=== PATIENT | female | born 1930 | race Hispanic/Latino ===

== ENCOUNTER 2017-05-13 19:12 | Inpatient (IN) | payer MEDICARE, OTHER ==
[2017-05-13 19:19] VITALS: BMI 29.0
[2017-05-13 19:42] LABS: BASO # 0.05 K/mm3 (0.0-2.0); BASO % 0.4 % (0.0-3.0); EOS # 0.2 (0.0-0.7); EOS % 1.5 % (1.5-5.0); GRAN # 6.85 (1.4-6.5); GRAN % 61.4 % (50.0-68.0); HEMOGLOBIN 14.1 g/dL (12.0-16.0); LYMPH # 2.4 (1.2-3.4); LYMPH % 21.1 % (22.0-35.0); MEAN CORPUSCULAR HEMOGLOBIN 30.1 pg (25.0-35.0); MEAN CORPUSCULAR HGB CONC 33.1 g/dl (31.0-37.0); MEAN PLATELET VOLUME 9.1 fl (7.0-11.0); MONO # 1.7 (0.1-0.6); MONO % 15.6 % (1.0-6.0); RBC 4.68 10^6/uL (3.5-6.1); RED CELL DISTRIBUTION WIDTH 13.6 % (11.5-14.5); WHITE BLOOD COUNT 11.2 10^3/ul (4.5-11.0)
--- NOTE | 2017-05-13 19:58 | ED PDOC ---
Arrival/HPI - General Chief Complaint: Lower Extremity Problem/Injury Time Seen by Provider: 05/13/17 19:22 - History of Present Illness Narrative History of Present Illness (Text): 05/13/17 19:54 Patient is an 86 y/o F with hx of dm, htn, copd, hyperlipidemia, presenting complaining of b/l lower extremity edema. Also complaining of worsening shortness of breath and dyspnea on exertion. Reports productive cough. Denies fever. Past Medical History - Provider Review Nursing Documentation Reviewed: Yes - Infectious Disease Hx of Infectious Diseases: None - Tetanus Immunization Tetanus Immunization: Unknown - Cardiac Hx Cardiac Disorders: Yes Hx Congestive Heart Failure: Yes Hx Hypertension: Yes Hx Pacemaker: No Other/Comment: Stent placement - Pulmonary Hx Chronic Obstructive Pulmonary Disease (COPD): Yes - Neurological Hx Neurological Disorder: No - HEENT Hx HEENT Disorder: Yes Hx Cataracts: Yes Hx Deafness: Yes (left ear) - Renal Hx Renal Disorder: Yes Hx Neurogenic Bladder: Yes - Endocrine/Metabolic Hx Endocrine Disorders: Yes Hx Diabetes Mellitus Type 2: Yes - Hematological/Oncological Hx Blood Transfusions: No Hx Blood Transfusion Reaction: No - Integumentary Hx Dermatological Disorder: No - Musculoskeletal/Rheumatological Hx Musculoskeletal Disorders: Yes - Gastrointestinal Hx Gastrointestinal Disorders: Yes Hx Gastroesophageal Reflux: Yes - Genitourinary/Gynecological Hx Genitourinary Disorders: No - Psychiatric Hx Psychophysiologic Disorder: No Hx Emotional Abuse: No Hx Physical Abuse: No Hx Substance Use: No - Past Surgical History Past Surgical History: Unable to Obtain - Surgical History Hx Coronary Stent: Yes Hx Eye Surgery: Yes - Anesthesia Hx Anesthesia Reactions: Yes (NAUSEA) - Suicidal Assessment Feels Threatened In Home Enviroment: No Family/Social History - Physician Review Nursing Documentation Reviewed: Yes Family/Social History: No Known Family HX Smoking Status: Former Smoker Hx Alcohol Use: No Hx Substance Use: No Hx Substance Use Treatment: No Allergies/Home Meds Allergies/Adverse Reactions: Allergies oxycodone Allergy (Verified 06/06/16 12:31) NAUSEA Sulfa (Sulfonamide Antibiotics) Allergy (Verified 06/06/16 12:31) NAUSEA MOLD Allergy (Intermediate, Uncoded 06/06/16 12:31) SHORTNESS OF BREATH Home Medications: Home Meds Medication Instructions Recorded Confirmed Albuterol Sulfate [Proair Hfa] 0.09 mg IH Q4H PRN 09/21/12 05/13/17 Fluticasone/Salmeterol [Advair 1 puff IH Q12H 09/21/12 05/13/17 250-50 Diskus] Tiotropium [Spiriva] 18 mcg IH DAILY 09/21/12 05/13/17 Atorvastatin Calcium [Lipitor] 10 mg PO QPM 03/16/15 05/13/17 Clopidogrel [Plavix] 75 mg PO DAILY 03/16/15 05/13/17 Aspirin [Aspirin Chewable] 81 mg PO DAILY 06/06/16 05/13/17 Furosemide [Lasix] 20 mg PO BID 06/06/16 05/13/17 Glipizide [Glipizide Xl] 5 mg PO BID 06/06/16 05/13/17 Lisinopril [Zestril] 20 mg PO BID 06/06/16 05/13/17 diltiaZEM [Cardizem] 360 mg PO DAILY 06/06/16 05/13/17 Cholecalciferol (Vitamin D3) 2,000 unit PO DAILY 02/09/17 05/13/17 [Vitamin D3] Metoprolol Tartrate [Lopressor] 25 mg PO BID 02/09/17 05/13/17 Review of Systems - Physician Review All systems were reviewed & negative as marked: Yes - Review of Systems Constitutional: absent: Weight Change, Fevers Respiratory: SOB, Cough, Sputum. absent: Wheezing Cardiovascular: Edema. absent: Chest Pain, Palpitations, Calf Pain, HICKEY Gastrointestinal: absent: Abdominal Pain, Constipation, Diarrhea, Nausea, Vomiting Genitourinary Female: absent: Dysuria Physical Exam Vital Signs Reviewed: Yes Vital Signs Temp Pulse Resp BP Pulse Ox 05/13/17 20:49 163/72 H 05/13/17 19:12 97.3 F L 64 19 194/94 H 95 Temperature: Afebrile Blood Pressure: Hypertensive Pulse: Regular Respiratory Rate: Normal Appearance: Positive for: Well-Appearing, Non-Toxic, Comfortable Pain Distress: None Mental Status: Positive for: Alert and Oriented X 3 - Systems Exam Head: Present: Atraumatic, Normocephalic Pupils: Present: PERRL Extroacular Muscles: Present: EOMI Conjunctiva: Present: Normal Mouth: Present: Moist Mucous Membranes Neck: Present: Normal Range of Motion Respiratory/Chest: Present: Rales, Other (decreased air entry) Cardiovascular: Present: Irregular Rhythm Abdomen: No: Tenderness, Distention Upper Extremity: Present: Normal Inspection Lower Extremity: Present: Edema (2+ pitting edema) Neurological: Present: GCS=15, CN II-XII Intact Psychiatric: Present: Alert, Oriented x 3 Medical Decision Making ED Course and Treatment: Chart review shows echo in 2014 showing EF:70%. 02/2017 normal stress test. 05/13/17 19:57 Ekg shows afib at 55bpm with appears new. 05/13/17 20:26 Cxray negative for overload. BNP mildly elevated. Trop negative. Will transfer to tele for new onset afib and lower extremity edema under Dr. Aburto 05/13/17 21:00 - Lab Interpretations Lab Results: 05/13/17 19:29 05/13/17 19:29 Lab Results 05/13/17 19:29: Influenza Typ A,B (EIA) Negative for flu a/b 05/13/17 19:29: Sodium 138, Potassium 4.4, Chloride 100, Carbon Dioxide 26, Anion Gap 17, BUN 20, Creatinine 0.7, Est GFR ( Amer) > 60, Est GFR (Non- Af Amer) > 60, Random Glucose 174 H, Calcium 10.9 H, Total Bilirubin 0.9, AST 30 , ALT 37, Alkaline Phosphatase 137 H, Troponin I 0.02 D, NT-Pro-B Natriuret Pep 984 H, Total Protein 7.7, Albumin 4.3, Globulin 3.4, Albumin/Globulin Ratio 1.3 05/13/17 19:29: WBC 11.2 H, RBC 4.68, Hgb 14.1, Hct 42.6, MCV 91.0, MCH 30.1, MCHC 33.1, RDW 13.6, Plt Count 292, MPV 9.1, Gran % 61.4, Lymph % (Auto) 21.1 L , [place] % (Auto) 15.6 H, Eos % (Auto) 1.5, Baso % (Auto) 0.4, Gran # 6.85 H, Lymph # 2.4, [place] # 1.7 H, Eos # 0.2, Baso # 0.05 - RAD Interpretation Radiology Orders: 05/13/17 19:22 CHEST PORTABLE [RAD] Stat - Medication Orders Current Medication Orders: Discontinued Medications Aspirin (Aspirin Chewable) 324 mg PO STAT STA Stop: 05/13/17 20:26 Last Admin: 05/13/17 20:49 Dose: 324 mg Furosemide (Lasix) 20 mg IVP STAT STA Stop: 05/13/17 20:26 Last Admin: 05/13/17 20:49 Dose: 20 mg MAR Blood Pressure Document 05/13/17 20:49 CNR (Rec: 05/13/17 20:54 CNR [id number]) Blood Pressure Blood Pressure (100/60-150/90) 163/72 IVP Administration Document 05/13/17 20:49 CNR (Rec: 05/13/17 20:54 CNR [id number]) Charges for Administration # of IVP Administrations 1 Disposition/Present on Arrival - Present on Arrival Any Indicators Present on Arrival: No History of DVT/PE: No History of Uncontrolled Diabetes: No Urinary Catheter: No History of Decub. Ulcer: No History Surgical Site Infection Following: None - Disposition Have Diagnosis and Disposition been Completed?: Yes Diagnosis: Lower extremity edema, New onset atrial fibrillation Disposition: HOSPITALIZED Disposition Time: 20:27 Patient Plan: Admission Patient Problems: Current Active Problems Problem Status Onset Lower extremity edema Acute New onset atrial fibrillation Acute Condition: FAIR Referrals: Louisa Aburto MD [Primary Care Provider] - Follow up with primary Forms: [facility] (Romansh)
[2017-05-13 20:13] LABS: ALB/GLOB RATIO 1.3 (1.1-1.8); ALBUMIN 4.3 g/dL (3.0-4.8); ALT/SGPT 37 U/L (7-56); AST/SGOT 30 U/L (14-36); BLOOD UREA NITROGEN 20 mg/dL (7-21); CALCIUM 10.9 mg/dL (8.4-10.5); GFR AFRICAN-AMERICAN > 60; GFR NON-AFRICAN AMERICAN > 60
[2017-05-13 20:22] LABS: B-TYPE NATRIURETIC PEPTIDE 984 pg/mL (0-450); TROPONIN I 0.02 ng/mL
[2017-05-13] MEDS ORDERED: Insulin Lispro (humaLOG) MEDIUM Coverage SC SCH (22:00)
[2017-05-13] MEDS: GlipiZIDE 5 mg SR Tab PO SCH (22:55)
[2017-05-13] MEDS: Insulin Lispro (humaLOG) MEDIUM Coverage SC SCH (22:56)
--- NOTE | 2017-05-14 01:24 | CP.PCM.PN ---
Subjective - Date & Time of Evaluation Date of Evaluation: 05/14/17 Time of Evaluation: 01:21 - Subjective Subjective: S:Nurse calls and tells that troponin has gone up from 0.02 to 0.03 and if she can repeat troponin. Patient is asymptomatic. Medical record was reviewed. O: Last Vital Signs 3 Temp 97.3 F L 05/13/17 19:12 Pulse 55 L 05/13/17 21:49 Resp 16 05/13/17 21:49 BP 154/61 H 05/13/17 21:49 Pulse Ox 95 05/13/17 21:49 Awake, alert. LUNGS: Normal breathing pattern. A: Trending up troponin. P: May repeat troponin level in AM. Objective - Vital Signs/Intake and Output Vital Signs (last 24 hours): Temp Pulse Resp BP Pulse Ox 97.3 F L 55 L 16 154/61 H 95 05/13/17 19:12 05/13/17 21:49 05/13/17 21:49 05/13/17 21:49 05/13/17 21:49 - Medications Medications: Current Medications Aspirin (Aspirin Chewable) 81 mg PO DAILY [facility] Atorvastatin Calcium (Lipitor) 10 mg PO QPM [facility] Clopidogrel Bisulfate (Plavix) 75 mg PO DAILY [facility] Diltiazem HCl (Cardizem Cd) 360 mg PO DAILY [facility] Furosemide (Lasix) 40 mg IVP DAILY [facility] Glipizide (Glucotrol Xl) 5 mg PO BID [facility] Last Admin: 05/13/17 22:55 Dose: Not Given Insulin Human Lispro (Humalog Med) 0 units SC [facility] PRN Reason: Protocol Last Admin: 05/13/17 22:56 Dose: Not Given Insulin Human Lispro (Humalog Med) 0 units SC [facility] PRN Reason: Protocol Last Admin: 05/13/17 22:56 Dose: Not Given Lisinopril (Zestril) 20 mg PO BID [facility] Last Admin: 05/13/17 21:45 Dose: 20 mg Metoprolol Tartrate (Lopressor) 25 mg PO BID [facility] Tiotropium [place] (Spiriva) 18 mcg IH DAILY [facility]
--- NOTE | 2017-05-14 04:50 | HP ---
HISTORY OF PRESENT ILLNESS: The patient is an 86-year-old known to me from my office practice. I got a call earlier that her legs are swollen. I advised her to go to emergency room to rule out DVT versus congestive heart failure. So, the patient came to the Emergency Room for further evaluation. The patient does complain of cough and congestion. She does complain of shortness of breath on walking. No history of fever, no chills. No nausea or vomiting. No diarrhea. No hemoptysis. No hematemesis. PAST MEDICAL HISTORY: 1. She has significant past medical history of non-insulin dependent diabetes. 2. Hypertension. 3. COPD. 4. Coronary artery disease, status post angioplasty. 5. History of degenerative disc disease, status post multiple epidurals, status post cardiac cath in 03/2015. At that point, she had angioplasty done for ramus intermedius that was 90% stenosis, ejection fraction 60% to 65%. ALLERGIES: She is allergic to: 1. OXYCODONE. 2. SULFA. 3. MOLDS. MEDICATIONS AT HOME: She is on Spiriva 18 mcg daily, metoprolol 25 mg b.i.d., lisinopril 20 mg twice a day, Advair 250/50 one puff twice a day, aspirin 81 daily, albuterol, diltiazem 360 daily, glipizide 5 mg twice a day, Lasix 20 mg twice a day, Plavix 75 daily, Lipitor 10 mg daily. SOCIAL HISTORY: She used to be a heavy smoker in the past, but quit few years ago. PHYSICAL EXAMINATION: GENERAL: She is awake, alert, and oriented. Mild shortness of breath. VITAL SIGNS: She is afebrile. Pulse 64, respirations 19, blood pressure 163/72. LUNGS: Bilateral few respiratory rhonchi. Soft crackles at bases. HEART: S1 and S2 audible. ABDOMEN: Soft and nontender. No rebound. No guarding. NEUROLOGIC: The patient is awake, alert, oriented, able to communicate. EXTREMITIES: Bilateral legs, +2 edema. LABORATORY EXAMINATION: WBC is 11.2, hemoglobin 14, hematocrit 42.6, platelet of 292,000. Chemistry: Sodium of 138, potassium 4.4, chloride 100, CO2 of 26, BUN 20, creatinine 0.7, blood sugar of 174. Calcium 10.9, alkaline phosphatase 137. BNP 984. Flu test is negative. ASSESSMENT: 1. Chronic obstructive pulmonary disease exacerbation. 2. Congestive heart failure. 3. Coronary artery disease. 4. Non-insulin dependent diabetes. 5. Hypertension. 6. Hyperlipidemia. PLAN: We will start the patient on her usual medication. We will monitor blood sugars. Start IV Lasix. The patient is in AFib, but rate controlled. I will start her on Eliquis and Dr. Damian to evaluate the patient in the a.m. We will follow up electrolyte in a.m. Louisa Aburto MD
--- NOTE | 2017-05-14 05:27 | CP.PCM.PN ---
Subjective - Date & Time of Evaluation Date of Evaluation: 05/14/17 Time of Evaluation: 05:26 - Subjective Subjective: As per nurse patient has nausea. No chest pain, sob. VSS. Rx, Protonix 40 mg IV x 1 . troponin pending. Objective - Vital Signs/Intake and Output Vital Signs (last 24 hours): Temp Pulse Resp BP Pulse Ox 99.2 F 56 L 20 158/58 H 95 05/13/17 22:32 05/14/17 05:18 05/13/17 22:32 05/13/17 22:32 05/13/17 21:49 - Medications Medications: Current Medications Aspirin (Aspirin Chewable) 81 mg PO DAILY [facility] Atorvastatin Calcium (Lipitor) 10 mg PO QPM [facility] Clopidogrel Bisulfate (Plavix) 75 mg PO DAILY [facility] Diltiazem HCl (Cardizem Cd) 360 mg PO DAILY [facility] Furosemide (Lasix) 40 mg IVP DAILY [facility] Glipizide (Glucotrol Xl) 5 mg PO BID [facility] Last Admin: 05/13/17 22:55 Dose: Not Given Insulin Human Lispro (Humalog Med) 0 units SC [facility] PRN Reason: Protocol Last Admin: 05/13/17 22:56 Dose: Not Given Insulin Human Lispro (Humalog Med) 0 units SC [facility] PRN Reason: Protocol Last Admin: 05/13/17 22:56 Dose: Not Given Lisinopril (Zestril) 20 mg PO BID [facility] Last Admin: 05/13/17 21:45 Dose: 20 mg Metoprolol Tartrate (Lopressor) 25 mg PO BID [facility] Tiotropium [place] (Spiriva) 18 mcg IH DAILY [facility]
[2017-05-14] MEDS ORDERED: Pantoprazole 40 mg EC Tab PO STA (05:39)
[2017-05-14 05:48] LABS: ALB/GLOB RATIO 1.2 (1.1-1.8); ALBUMIN 3.8 g/dL (3.0-4.8); CALCIUM 10.3 mg/dL (8.4-10.5); GFR AFRICAN-AMERICAN > 60; GFR NON-AFRICAN AMERICAN > 60
[2017-05-14 05:56] LABS: TROPONIN I 0.02 ng/mL
[2017-05-14 06:00] LABS: FREE T4 1.23 ng/dL (0.78-2.19)
[2017-05-14 06:10] LABS: ALT/SGPT 37 U/L (7-56); AST/SGOT 34 U/L (14-36); BLOOD UREA NITROGEN 22 mg/dL (7-21); MAGNESIUM 1.7 mg/dL (1.7-2.2)
[2017-05-14] MEDS: Insulin Lispro (humaLOG) MEDIUM Coverage SC SCH ×4 (07:47→23:44)
--- NOTE | 2017-05-14 08:11 | RAD ---
HISTORY: lower extremity edema COMPARISON: 06/06/2016 FINDINGS: LUNGS: There is minimal parenchymal scarring in the right upper lobe and left lower lobe. There are no acute findings PLEURA: No significant pleural effusion identified, no pneumothorax apparent. CARDIOVASCULAR: Normal. OSSEOUS STRUCTURES: No significant abnormalities. VISUALIZED UPPER ABDOMEN: Normal. OTHER FINDINGS: None. IMPRESSION: No acute changes
[2017-05-14] MEDS: diltiaZEM 180 mg/24 Hours CD Cap PO SCH (09:16)
[2017-05-14] MEDS: GlipiZIDE 5 mg SR Tab PO SCH ×2 (09:17→17:28)
[2017-05-14] MEDS: Tiotropium 18 mcg Cap For Inhalation IH SCH (10:20)
[2017-05-14] MEDS: Levalbuterol 1.25 MG/3 ML Inhal Soln UD IH SCH ×3 (11:15→22:15)
--- NOTE | 2017-05-14 12:20 | CARD ---
APPROVED REPORT EKG Measurement Heart [id number] HI [id number] <Conclusion> Sinus rhythm with 1st degree AV block Nonspecific ST and T wave abnormality Abnormal ECG
[2017-05-14] MEDS ORDERED: Enoxaparin 40 mg Syringe SC ONE (17:25)
--- NOTE | 2017-05-14 19:00 | PN ---
DATE: SUBJECTIVE: The patient is an 86-year-old, who came in with bilateral leg swelling with shortness of breath, cough and congestion. Was found to be in AFib. Repeat EKG this morning shows sinus rhythm. Currently, feeling well. No nausea, vomiting or diarrhea. PHYSICAL EXAMINATION: VITAL SIGNS: The patient is afebrile. Pulse 69, respirations 21, blood pressure 144/57. LUNGS: Bilateral fair airflow. Few occasional expiratory rhonchi. Lower lung region has soft crackle. HEART: S1 and S2, audible. Regular rate and rhythm. ABDOMEN: Soft, nontender. No rebound. No guarding. NEUROLOGIC: She is awake, alert, oriented, able to communicate. EXTREMITIES: Bilateral leg no edema. LABORATORY DATA: Her chemistry: Sodium 139, potassium 4.0, chloride 100, CO2 of 27, BUN 22, creatinine 0.6, blood sugar of 186. . ASSESSMENT: 1. New onset atrial fibrillation. Currently in sinus rhythm. 2. Congestive heart failure acute on chronic systolic. 3. Coronary artery disease. 4. Hypertension. 5. Non-insulin dependent diabetes. 6. Hyperlipidemia. 7. Chronic obstructive pulmonary disease. PLAN: We will start the patient on nebulizer treatment. Start her on diuresis. Continue her on metoprolol. Monitor her blood sugar. We will discuss with Dr. Damian if we should put the patient on Eliquis because of intermittent paroxysmal AFib since the patient is spontaneously converted into sinus rhythm. Louisa Aburto MD
[2017-05-15 02:38] VITALS: RESP 20; O2SAT 99
--- NOTE | 2017-05-15 05:51 | CON ---
DATE: 05/14/2017 REASON FOR CONSULTATION AND FOLLOWUP: Cardiac evaluation, paroxysmal atrial fibrillation, congestive heart failure, history of coronary artery disease. BRIEF CLINICAL HISTORY: This is an 86-year-old female with past medical history of coronary artery disease, COPD, hypertension, obesity, questionable history of paroxysmal atrial fibrillation, admitted with complaint of increased swelling of legs and shortness of breath. EKG shows normal sinus with APCs. The patient admitted for atrial fibrillation as well, but is normal sinus. PAST MEDICAL HISTORY: Significant for diabetes, hypertension, hyperlipidemia, coronary artery disease, peripheral artery disease, and mitral stenosis. PREVIOUS CARDIAC WORKUP: The patient's bilateral carotids on 11/21/2014, that showed 40% to 55% bilateral stenosis. The patient's stress test on 01/21, normal ejection fraction, echocardiography on 11/21/2014 that showed ejection fraction of 55% ,aortic regurgitation, moderate mitral regurgitation, mild tricuspid regurgitation, pulmonary insufficiency. OMAR was done, bilateral SFA and popliteal disease trifurcation. OMAR on the right 0.59, 0.74. 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 Preserved left ventricular function, ejection fraction of 65%. Right heart catheterization at that time revealed RA 6 to 7, RV 42/11, PA 37/18, mean PA 18, 14, cardiac output 4.8 L per minute, cardiac index 2.56 L, PVR 1.7 Franks unit, occluded left internal carotid artery, occluded both SFA. Successful PTCA of ELBA and ramus intermedius done. No significant aortic stenosis noted. Mild gradient noted on pullback where the patient had peripheral vascular study, showed bilateral renal artery patent. No obstructive stenosis noted. Bilateral common iliac divides into femoral artery. 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 Medical treatment recommended. RECOMMENDATION: If claudication developed, consider PCI. Bilateral carotid angiogram done that shows right common carotid artery exiting from the brachiocephalic trunk. No flow obstructive stenosis noted. Left internal carotid artery from arch into the internal and external after taking off internal carotid artery 1-cm totally occluded. Medical treatment recommended. Left internal carotid artery occluded, right common artery normal. The patient has recent stress test done on 02/09/2017, that shows essentially normal myocardial perfusion study, fixed defect most likely secondary to breast attenuation, no ischemia. REVIEW OF SYSTEMS: As per HPI. CURRENT MEDICATIONS: The patient is taking at home Cardizem 12.8, metoprolol, lisinopril, glipizide, clopidogrel, aspirin and Plavix. ALLERGIES: TO OXYCODONE, SULFA AND MOLD. PHYSICAL EXAMINATION: VITAL SIGNS: As follows: Temperature afebrile, heart rate 69 and blood pressure 144/57. HEENT: PERRLA. Extraocular muscles intact. NECK: Supple. No carotid bruits or thyromegaly. CHEST: Clear to auscultation. HEART: S1 and S2, regular. ABDOMEN: Soft. EXTREMITIES: Clubbing and cyanosis negative. LABORATORY DATA: Blood workup as follows: WBC 11.8, hemoglobin 14.2, hematocrit 42.6 and platelet count 292. Chemistries show sodium 139, potassium 4, chloride 100, carbon dioxide 26, anion gap 15, BUN 20, creatinine 0.6. Troponin 0.03. BNP 984. IMPRESSION: Diabetes, hypertension, hyperlipidemia, morbid obesity, coronary artery disease, peripheral arterial disease, mitral stenosis, moderate mild aortic stenosis. RECOMMENDATIONS: We will resume aspirin and Plavix. Continue Lasix, continue Cardizem. We will repeat echo, lipid profile, TSH, hemoglobin A1c. We will follow with you. Once stable, probably we will discharge the patient tomorrow. Continue beta bert. Continue atorvastatin. Continue lisinopril. Thank you Dr. Aburto for providing us this opportunity in taking care of the patient, Garth. Viviana Damian MD
[2017-05-15 06:05] LABS: BASO # 0.06 K/mm3 (0.0-2.0); BASO % 0.5 % (0.0-3.0); EOS # 0.2 (0.0-0.7); EOS % 1.5 % (1.5-5.0); GRAN # 6.93 (1.4-6.5); GRAN % 61.8 % (50.0-68.0); HEMOGLOBIN 12.7 g/dL (12.0-16.0); LYMPH # 2.9 (1.2-3.4); MEAN CELL VOLUME 91.8 fl (80.0-105.0); MEAN CORPUSCULAR HEMOGLOBIN 29.7 pg (25.0-35.0); MEAN CORPUSCULAR HGB CONC 32.3 g/dl (31.0-37.0); MEAN PLATELET VOLUME 9.3 fl (7.0-11.0); MONO # 1.1 (0.1-0.6); MONO % 10.2 % (1.0-6.0); RBC 4.28 10^6/uL (3.5-6.1); RED CELL DISTRIBUTION WIDTH 13.8 % (11.5-14.5); WHITE BLOOD COUNT 11.2 10^3/ul (4.5-11.0)
[2017-05-15 06:33] LABS: ALB/GLOB RATIO 1.3 (1.1-1.8); ALBUMIN 3.9 g/dL (3.0-4.8); ALT/SGPT 34 U/L (7-56); AST/SGOT 31 U/L (14-36); BLOOD UREA NITROGEN 38 mg/dL (7-21); CALCIUM 10.6 mg/dL (8.4-10.5); GFR AFRICAN-AMERICAN > 60; GFR NON-AFRICAN AMERICAN 60; HDL CHOLESTEROL 38 mg/dL (29-60); LDL CHOLESTEROL 79 mg/dL (0-129); MAGNESIUM 1.6 mg/dL (1.7-2.2)
[2017-05-15] MEDS: Levalbuterol 1.25 MG/3 ML Inhal Soln UD IH SCH ×2 (07:52→14:19)
[2017-05-15] MEDS: Insulin Lispro (humaLOG) MEDIUM Coverage SC SCH ×2 (08:57→12:29)
--- NOTE | 2017-05-15 09:56 | CARD ---
APPROVED REPORT EKG Measurement Heart [id number] ND [id number] <Conclusion> Sinus rhythm with 1st degree AV block ST & T wave abnormality, consider lateral ischemia Abnormal ECG
[2017-05-15] MEDS ORDERED: Enoxaparin 40 mg Syringe SC SCH (10:00)
[2017-05-15] MEDS ORDERED: Magnesium Oxide 400 mg Tab UD PO SCH (10:00)
[2017-05-15] MEDS: Tiotropium 18 mcg Cap For Inhalation IH SCH (10:02)
[2017-05-15] MEDS: GlipiZIDE 5 mg SR Tab PO SCH (10:03)
[2017-05-15] MEDS: diltiaZEM 180 mg/24 Hours CD Cap PO SCH (10:03)
--- NOTE | 2017-05-15 13:44 | PN ---
DATE: 05/15/2017 REASON FOR CONSULTATION AND FOLLOWUP: Cardiac evaluation, paroxysmal atrial fibrillation, congestive heart failure, coronary artery disease. SUBJECTIVE: The patient denies any chest pain, shortness of breath or any palpitations. OBJECTIVE: GENERAL: Not in apparent distress. Lying flat on the bed. VITAL SIGNS: Temperature afebrile, heart rate 66, blood pressure 130/52. HEENT: PERRLA intact. NECK: Supple. No carotid bruits or thyromegaly. CHEST: Clear to auscultation. HEART: S1 and S2, regular. ABDOMEN: Soft. EXTREMITIES: Clubbing and cyanosis negative. LABORATORY DATA: Blood workup as follows: WBC 11.8, hemoglobin 12, hematocrit 39.3, and platelet count 302. Chemistry shows sodium 130, potassium 4, chloride 100, carbon dioxide 29, anion gap of 13, BUN 30, and creatinine 0.9. Magnesium 1.6. BNP yesterday was 984. Troponin 0.02. IMPRESSION: Hypomagnesemia, history of coronary artery disease status post percutaneous transluminal coronary angioplasty with drug-eluting stent, ramus intermedius, diabetes, hypertension, hyperlipidemia, mild obesity, coronary artery disease, peripheral artery disease, mitral stenosis, moderate aortic stenosis. Recent stress test 02/10/2016, essentially normal myocardial perfusion study, no reversible ischemia. Right heart catheterization in 2014 was essentially upper limit normal. RECOMMENDATIONS: We will follow up echo. The patient's admitting EKG shows normal sinus with APCs, mildly elevated BNP. We will treat medically. Repeat EKG though showed some baseline abnormality but it is normal sinus. We will supplement electrolytes. Discontinue telemetry. Continue DVT prophylaxis. Continue Lasix. Possible discharge home today. Thank you Dr. Collier for providing us the opportunity in taking care of the patient, Viviana Damian MD
[2017-05-15 18:10] VITALS: BP 159/63; PULSE 57; TEMP 98.2
--- NOTE | 2017-05-15 18:14 | CARD ---
APPROVED REPORT EXAM: Two-dimensional and M-mode echocardiogram with Doppler and color Doppler. INDICATION LV Function:SystolicDiastolic Chest Pain 2D DIMENSIONS Left Atrium (2D)4.2 (1.6-4.0cm)IVSd1.1 (0.7-1.1cm) LVDd4.4 (3.9-5.9cm)PWd1.3 (0.7-1.1cm) LVDs2.9 (2.5-4.0cm)FS (%) 32.6 % LVEF (%)61.2 (>50%) M-Mode DIMENSIONS Aortic Root2.30 (2.2-3.7cm)Aortic Cusp Exc.0.60 (1.5-2.0cm) Aortic Valve AoV Peak Emsbryun698.0cm/sAoV VTI46.5cmAO Peak GR.20mmHg LVOT Peak Pljygbyl021.0cm/sLVOT VTI25.30cmAO Mean GR.10mmHg Mitral Valve MV E Tgamejtc966.0cm/sMV E Peak Gr.9mmHgMV A Yyfkbekl143.0cm/s MV E Mean Gr.4mmHgMV YKG329ekQ/A ratio0.7 MVA (PHT)1.43cm2 TDI E/Lateral E'0.0E/Medial E'0.0 Tricuspid Valve TR Peak Ljvlfehh424xb/sRAP UMMLUQYL06gfOaIL Peak Gr.25mmHg ATWL51zjTc LEFT VENTRICLE The left ventricle is normal size. There is mild concentric left ventricular hypertrophy. The left ventricular function is normal.EF-65% There is normal LV segmental wall motion. Transmitral Doppler flow pattern is Grade III-reversible restrictive diastolic dysfunction. No left ventricle thrombus noted on this study. There is no ventricular septal defect visualized. There is no left ventricular aneurysm. There is no mass noted in the left ventricle. RIGHT VENTRICLE The right ventricle is normal size. There is normal right ventricular wall thickness. The right ventricular systolic function is normal. ATRIA The left atrium is mildly dilated. The right atrium size is normal. The interatrial septum is intact with no evidence for an atrial septal defect. AORTIC VALVE The aortic valve is calcified and displays decreased opening. No aortic regurgitation is present. There is mild valvular aortic stenosis. There is no aortic valvular vegetation. MITRAL VALVE The mitral valve is calcified and displays decreased opening. Mitral regurgitation is trace. There is mild to moderate mitral valve stenosis. There is no evidence of mitral valve prolapse. TRICUSPID VALVE The tricuspid valve leaflets are thickened , but open well. There is mild tricuspid regurgitation.RVSP-35 mmof Hg. There is no tricuspid valve stenosis. There is no tricuspid valve prolapse or vegetation. PULMONIC VALVE The pulmonary valve is normal in structure. There is trace pulmonic valvular regurgitation. There is no pulmonic valvular stenosis. GREAT VESSELS The aortic root is normal in size. The ascending aorta is normal in size. The pulmonary artery is normal. The IVC is normal in size and collapses >50% with inspiration. PERICARDIAL EFFUSION There is no pleural effusion. There is no pericardial effusion. <Conclusion> The left ventricle is normal size. There is mild concentric left ventricular hypertrophy. The left ventricular function is normal.EF-65% There is mild valvular aortic stenosis. Mitral regurgitation is trace. There is mild tricuspid regurgitation.RVSP-35 mmof Hg. There is no pericardial effusion. There is mild to moderate mitral valve stenosis. The mitral valve is calcified and displays decreased opening.
--- NOTE | 2017-05-15 19:55 | CARD ---
APPROVED REPORT EKG Measurement Heart [id number] <Conclusion> Sinus Bradicardia Nonspecific T wave abnormality, probably digitalis effect Abnormal ECG
--- NOTE | 2017-05-16 02:57 | DS ---
HISTORY OF PRESENT ILLNESS: The patient is an 86-year-old, seen and examined, complained of back pain and difficulty walking. No nausea or vomiting. No diarrhea. Leg swelling has improved. Mild shortness of breath with cough and congestion. PHYSICAL EXAMINATION: VITAL SIGNS: She is afebrile, pulse 64, respirations 20, and blood pressure 139/71. LUNGS: Bilateral fair airflow. No rhonchi or crackles. HEART: S1 and S2 audible. ABDOMEN: Soft and nontender. No rebound. No guarding. NEUROLOGIC: The patient is awake, alert, oriented, and able to communicate. EXTREMITIES: Bilateral leg +1 edema. Paraspinal lumbar discomfort. LABORATORY DATA: WBC is 11.2, hemoglobin 12.7, hematocrit 39.3, and platelet of 302. Chemistry; sodium 138, potassium 4.0, chloride 100, CO2 of 29, BUN 38, and creatinine 0.9. Blood sugar of 118. Flu test is negative. ASSESSMENT: 1. Congestive heart failure acute on chronic systolic. 2. Hypertension. 3. Hyperlipidemia. 4. Coronary artery disease. 5. Chronic obstructive pulmonary disease. 6. Asthmatic bronchitis. 7. Lumbosacral radiculopathy. 8. Unstable gait. PLAN: The patient will be discharged home today. Discussed with Dr. Damian, no need for . I offered the patient to go to TCU, but she does not want to go home and she does not want home therapy either. She is opted to . The patient is being discharged home on Ultracet one tablet 3 times a day as needed and given prescription of Ceftin 250 twice a day and Phenergan with DM. She will continue her nebulizer treatment. She will follow up with Dr. Damian. She will follow up with me in 2 to 3 weeks. Louisa Aburto MD
== END 2017-05-15 18:20 | disposition home or self-care (01) | DRG 292 ==
LOC: ED 19:12 → ERH 20:33 → 2RSO 22:08
PROVIDERS: ADMIT Internal Medicine; ATTEND Internal Medicine
DX: I11.0 Hypertensive heart disease with heart failure (principal); I50.23 Acute on chronic systolic (congestive) heart failure; J44.1 Chronic obstructive pulmonary disease with (acute) exacerbation; I48.0 Paroxysmal atrial fibrillation; E11.51 Type 2 diabetes mellitus with diabetic peripheral angiopathy without gangrene; I25.10 Atherosclerotic heart disease of native coronary artery without angina pectoris; I08.3 Combined rheumatic disorders of mitral, aortic and tricuspid valves; M54.17 Radiculopathy, lumbosacral region; H91.8X2 Other specified hearing loss, left ear; E83.42 Hypomagnesemia; E78.5 Hyperlipidemia, unspecified; J98.4 Other disorders of lung; E66.9 Obesity, unspecified; R26.2 Difficulty in walking, not elsewhere classified; Z68.29 Body mass index [BMI] 29.0-29.9, adult; Z95.5 Presence of coronary angioplasty implant and graft; Z87.891 Personal history of nicotine dependence; Z79.82 Long term (current) use of aspirin; Z79.84 Long term (current) use of oral hypoglycemic drugs

== ENCOUNTER 2018-02-25 18:01 | Inpatient (IN) | payer MEDICARE, OTHER ==
[2018-02-25 18:08] VITALS: BMI 29.5
[2018-02-25] MEDS ORDERED: Albuterol-Ipratrop 3 mg / 0.5 (3 ml) UD IH STA (18:20)
--- NOTE | 2018-02-25 18:38 | ED PDOC ---
Addendum entered and electronically signed by Sasha Torres PA 02/28/18 17:26: Addendum Addendum: 02/28/18 17:25 spoke with patient; advised her of 10mm nodule on lung found on CT reading. advised f/u with PMD. she states she is supposed to f/u at the end of the week with dr. aburto and will discuss the findings with her. Original Note: Arrival/HPI - General Chief Complaint: Shortness Of Breath Time Seen by Provider: 02/25/18 18:06 Historian: Patient - History of Present Illness Narrative History of Present Illness (Text): 02/25/18 18:29 Patient is an 87 y/o F on Plavix, with past medical history of diabetes, HTN, COPD, hyperlipidemia, presenting to the Emergency Department with complaints of shortness of breath since prior to arrival. Patient informs worsening symptoms with exertion and similar to symptoms related to previous COPD exacerbation. Additionally, patient informs upper back "Tightness" ongoing for past couple of months that exacerbates shortness of breath. Patient denies any fever, chills, nausea, vomiting, diarrhea, abdominal pain, chest pain, cough, headache, dizziness, neck pain, or any other complaints. Pt denies any tobacco use. PMD: Dr. Aburto Time/Duration: Prior to Arrival Symptom Onset: Gradual Symptom Course: Unchanged Activities at Onset: Light Context: Home Past Medical History - Provider Review Nursing Documentation Reviewed: Yes - Infectious Disease Hx of Infectious Diseases: None - Tetanus Immunization Tetanus Immunization: Unknown - Cardiac Hx Cardiac Disorders: Yes (carotid stenosis) Hx Hypertension: Yes Hx Peripheral Vascular Disease: Yes - Pulmonary Hx Respiratory Disorders: Yes Hx Bronchitis: Yes Hx Chronic Obstructive Pulmonary Disease (COPD): Yes Hx Pneumonia: Yes - Neurological Hx Neurological Disorder: No - HEENT Hx HEENT Disorder: Yes Hx Cataracts: Yes (with surgery) Hx Deafness: Yes (left ear hearing aid) - Renal Hx Renal Disorder: Yes Hx Kidney Stones: Yes - Endocrine/Metabolic Hx Endocrine Disorders: Yes Hx Diabetes Mellitus Type 2: Yes - Hematological/Oncological Hx Blood Disorders: No Hx Shingles: Yes - Integumentary Hx Dermatological Disorder: No - Musculoskeletal/Rheumatological Hx Musculoskeletal Disorders: Yes (kyphosis with kyphoplasty) Hx Arthritis: Yes Hx Back Pain: Yes Hx Unsteady Gait: Yes - Gastrointestinal Hx Gastrointestinal Disorders: Yes Hx Diverticulitis: Yes Hx Gastroesophageal Reflux: Yes - Genitourinary/Gynecological Hx Genitourinary Disorders: No Hx Urinary Tract Infection: Yes - Psychiatric Hx Psychophysiologic Disorder: Yes Hx Anxiety: Yes Hx Substance Use: No - Past Surgical History Past Surgical History: Unable to Obtain - Surgical History Hx Appendectomy: Yes Hx Cardiac Catheterization: Yes Hx Cholecystectomy: Yes Hx Coronary Stent: Yes Hx Hysterectomy: Yes (partial) Other/Comment: kyphoplasty - Anesthesia Hx Anesthesia Reactions: Yes (NAUSEA) - Suicidal Assessment Feels Threatened In Home Enviroment: No Family/Social History - Physician Review Nursing Documentation Reviewed: Yes Family/Social History: Unknown Family HX Smoking Status: Former Smoker Hx Alcohol Use: No Hx Substance Use: No Hx Substance Use Treatment: No Allergies/Home Meds Allergies/Adverse Reactions: Allergies oxycodone Allergy (Verified 06/06/16 12:31) NAUSEA Sulfa (Sulfonamide Antibiotics) Allergy (Verified 06/06/16 12:31) NAUSEA MOLD Allergy (Intermediate, Uncoded 06/06/16 12:31) SHORTNESS OF BREATH Home Medications: Home Meds Medication Instructions Recorded Confirmed RX: Albuterol Sulfate [Proair Hfa] 0.09 mg IH Q4H PRN 09/21/12 02/27/18 RX: Tiotropium [Spiriva] 18 mcg IH DAILY 09/21/12 02/27/18 RX: Atorvastatin Calcium [Lipitor] 10 mg PO QPM 03/16/15 02/27/18 RX: Clopidogrel [Plavix] 75 mg PO DAILY 03/16/15 02/27/18 RX: Aspirin [Aspirin Chewable] 81 mg PO DAILY 06/06/16 02/27/18 RX: Glipizide [Glipizide Xl] 5 mg PO BID 06/06/16 02/27/18 RX: Lisinopril [Zestril] 20 mg PO BID 06/06/16 02/27/18 RX: Cholecalciferol (Vitamin D3) 2,000 unit PO DAILY 02/09/17 02/27/18 [Vitamin D3] RX: Furosemide [Lasix] 20 mg PO DAILY 05/15/17 02/27/18 Norvasc 10 mg PO DAILY 02/27/18 02/27/18 RX: Metoprolol Succinate 25 mg PO DAILY 02/27/18 02/27/18 RX: Umeclidinium Brm/Vilanterol Tr 1 each IH DAILY 02/27/18 02/27/18 [Anoro Ellipta 62.5-25 Mcg INH] Review of Systems - Physician Review All systems were reviewed & negative as marked: Yes - Review of Systems Constitutional: absent: Fevers Respiratory: SOB. absent: Cough Cardiovascular: absent: Chest Pain Gastrointestinal: absent: Abdominal Pain, Nausea, Vomiting Musculoskeletal: Back Pain. absent: Neck Pain Neurological: absent: Headache, Dizziness Physical Exam Appearance: Positive for: Well-Appearing, Non-Toxic, Comfortable Pain Distress: None Mental Status: Positive for: Alert and Oriented X 3 - Systems Exam Head: Present: Atraumatic, Normocephalic Pupils: Present: PERRL Extroacular Muscles: Present: EOMI Conjunctiva: Present: Normal Mouth: Present: Moist Mucous Membranes Neck: Present: Normal Range of Motion Respiratory/Chest: Present: Decreased Breath Sounds. No: Respiratory Distress, Accessory Muscle Use Cardiovascular: Present: Regular Rate and Rhythm, Normal S1, S2. No: Murmurs Abdomen: No: Tenderness, Distention, Peritoneal Signs Back: Present: Normal Inspection Upper Extremity: Present: Normal Inspection. No: Cyanosis, Edema Lower Extremity: Present: Normal Inspection. No: Edema Neurological: Present: GCS=15, CN II-XII Intact, Speech Normal Skin: Present: Warm, Dry, Normal Color. No: Rashes Psychiatric: Present: Alert, Oriented x 3, Normal Insight, Normal Concentration Medical Decision Making ED Course and Treatment: 02/25/18 18:40 Impression: 87 year old female who presents to the Emergency Department with complaints of shortness of breath. Differential Diagnosis included but are not limited to: COPD exacerbation Plan: -- labs -- EKG -- Chest X-ray -- Albuterol -- SOLU-Medrol -- UA -- Reassess and disposition Prior Visits: Notes and results from previous visits were reviewed. Progress Notes: EKG: Ordered, reviewed, and independently interpreted the EKG. Rate : 76 BPM Rhythm : NSR Interpretation : Non-specific ST/T wave changes. 02/25/18 19:09 Chest X-ray reviewed by radiologist, shows: FINDINGS: LUNGS:The lungs are hyperinflated and there is peribronchial thickening with chronic changes in both lungs. PLEURA: No pleural effusions or pneumothorax. CARDIOVASCULAR: The heart is normal in size. Atherosclerotic aortic arch calcifications are present. OSSEOUS STRUCTURES: Within normal limits for the patient's age. VISUALIZED UPPER ABDOMEN: Normal. OTHER FINDINGS: None. IMPRESSION: No active pulmonary disease. COPD. 02/28/18 12:15 pe study shows infiltrate antibiotics ordered. accepted by dr aburto for copd/pna. no e/o of pe. - RAD Interpretation Radiology Orders: 02/25/18 18:19 CHEST PORTABLE [RAD] Stat District Attorney: Radiologist - EKG Interpretation Interpreted by ED Physician: Yes Type: 12 lead EKG - Medication Orders Current Medication Orders: Discontinued Medications Albuterol/Ipratropium (Duoneb 3 Mg/0.5 Mg (3 Ml) Ud) 3 ml IH STAT STA Stop: 02/25/18 18:21 Methylprednisolone (Solu-Medrol) 125 mg IVP STAT STA Stop: 02/25/18 18:21 - Scribe Statement The provider has reviewed the documentation as recorded by the Scotty tijerina with [place] All medical record entries made by the Naniiban were at my direction and personally dictated by me. I have reviewed the chart and agree that the record accurately reflects my personal performance of the history, physical exam, medical decision making, and the department course for this patient. I have also personally directed, reviewed, and agree with the discharge instructions and disposition. Disposition/Present on Arrival - Present on Arrival Any Indicators Present on Arrival: No History of DVT/PE: No History of Uncontrolled Diabetes: Yes Urinary Catheter: No History of Decub. Ulcer: No History Surgical Site Infection Following: None - Disposition Have Diagnosis and Disposition been Completed?: Yes Diagnosis: COPD (chronic obstructive pulmonary disease), Pneumonia Disposition: HOSPITALIZED Disposition Time: 12:00 Condition: FAIR
--- NOTE | 2018-02-25 18:42 | RAD ---
Date of service: 02/25/2018 HISTORY: sob COMPARISON: 05/23/2017 FINDINGS: LUNGS: The lungs are hyperinflated and there is peribronchial thickening with chronic changes in both lungs. PLEURA: No pleural effusions or pneumothorax. CARDIOVASCULAR: The heart is normal in size. Atherosclerotic aortic arch calcifications are present. OSSEOUS STRUCTURES: Within normal limits for the patient's age. VISUALIZED UPPER ABDOMEN: Normal. OTHER FINDINGS: None. IMPRESSION: No active pulmonary disease. COPD.
[2018-02-25 19:02] LABS: VENOUS BLOOD GAS BASE EXCESS 1.7 mmol/L (0.0-2.0); VENOUS BLOOD GAS PO2 42 mm/Hg (30-55); VENOUS BLOOD PH 7.39 (7.32-7.43)
[2018-02-25 19:07] LABS: BASO # 0.05 K/mm3 (0.0-2.0); BASO % 0.5 % (0.0-3.0); EOS # 0.3 (0.0-0.7); EOS % 2.5 % (1.5-5.0); GRAN # 6.78 (1.4-6.5); GRAN % 63.5 % (50.0-68.0); HEMOGLOBIN 13.1 g/dL (12.0-16.0); LYMPH # 2.6 (1.2-3.4); LYMPH % 23.9 % (22.0-35.0); MEAN CELL VOLUME 88.9 fl (80.0-105.0); MEAN CORPUSCULAR HEMOGLOBIN 29.1 pg (25.0-35.0); MEAN CORPUSCULAR HGB CONC 32.8 g/dl (31.0-37.0); MEAN PLATELET VOLUME 9.5 fl (7.0-11.0); MONO % 9.6 % (1.0-6.0); RBC 4.5 10^6/uL (3.5-6.1); RED CELL DISTRIBUTION WIDTH 13.3 % (11.5-14.5); URINE BILIRUBIN NEGATIVE (NEGATIVE); URINE BLOOD NEGATIVE (NEGATIVE); URINE GLUCOSE (UA) NEGATIVE (NEGATIVE); URINE LEUKOCYTE ESTERASE TRACE Leu/uL (NEGATIVE); URINE PROTEIN 100 mg/dL (<30 mg/dL); URINE UROBILINOGEN 0.2 E.U./dL (<1 E.U./dL); WHITE BLOOD COUNT 10.7 10^3/ul (4.5-11.0)
[2018-02-25 19:19] LABS: ALB/GLOB RATIO 1.4 (1.1-1.8); ALBUMIN 4.4 g/dL (3.0-4.8); ALT/SGPT 24 U/L (7-56); AST/SGOT 29 U/L (14-36); BLOOD UREA NITROGEN 21 mg/dL (7-21); CALCIUM 10.6 mg/dL (8.4-10.5); GFR NON-AFRICAN AMERICAN > 60
[2018-02-25 19:20] LABS: INR 1.03; PARTIAL THROMBOPLASTIN TIME 30.8 Seconds (25.1-36.5); PROTHROMBIN TIME 11.7 SECONDS (9.4-12.5)
[2018-02-25 19:23] LABS: URINE APPEARANCE CLEAR (CLEAR)
[2018-02-25] MEDS ORDERED: cefTRIAXone 1 gm 1 GM/100 ML BAG IVPB STA (19:24)
[2018-02-25 19:27] LABS: URINE BACTERIA SMALL (NEG)
[2018-02-25 19:30] LABS: B-TYPE NATRIURETIC PEPTIDE 379 pg/mL (0-450); TROPONIN I 0.01 ng/mL
[2018-02-25] MEDS ORDERED: Iohexol 350 MG/100 ML VIAL ONE (19:32)
[2018-02-25] MEDS ORDERED: Azithromycin 500MG/NS 250ml 500 MG/250 ML BAG IVPB STA (20:54)
[2018-02-25] MEDS ORDERED: Albuterol-Ipratrop 3 mg / 0.5 (3 ml) UD IH PRN (22:54)
[2018-02-26] MEDS: MethylPREDNISolone 40 mg Vial IV SCH ×3 (00:10→22:25)
[2018-02-26] MEDS: Albuterol-Ipratrop 3 mg / 0.5 (3 ml) UD IH SCH ×4 (01:26→19:55)
[2018-02-26] MEDS: Pantoprazole 40 mg EC Tab PO SCH (06:42)
[2018-02-26 06:55] LABS: BASO # 0.02 K/mm3 (0.0-2.0); BASO % 0.1 % (0.0-3.0); GRAN # 13.11 (1.4-6.5); GRAN % 89.6 % (50.0-68.0); HEMOGLOBIN 12.7 g/dL (12.0-16.0); LYMPH # 1.4 (1.2-3.4); LYMPH % 9.7 % (22.0-35.0); MEAN CELL VOLUME 88.5 fl (80.0-105.0); MEAN CORPUSCULAR HEMOGLOBIN 28.6 pg (25.0-35.0); MEAN CORPUSCULAR HGB CONC 32.3 g/dl (31.0-37.0); MEAN PLATELET VOLUME 9.5 fl (7.0-11.0); MONO # 0.1 (0.1-0.6); MONO % 0.6 % (1.0-6.0); RBC 4.44 10^6/uL (3.5-6.1); RED CELL DISTRIBUTION WIDTH 13.3 % (11.5-14.5); WHITE BLOOD COUNT 14.6 10^3/ul (4.5-11.0)
[2018-02-26 07:16] LABS: ALB/GLOB RATIO 1.3 (1.1-1.8); ALBUMIN 4.2 g/dL (3.0-4.8); ALT/SGPT 22 U/L (7-56); AST/SGOT 28 U/L (14-36); BLOOD UREA NITROGEN 26 mg/dL (7-21); CALCIUM 10.3 mg/dL (8.4-10.5); GFR NON-AFRICAN AMERICAN > 60
[2018-02-26] MEDS: Insulin Reg-HIGH-Coverage SC SCH ×4 (07:59→21:52)
--- NOTE | 2018-02-26 08:54 | HP ---
HISTORY OF PRESENT ILLNESS: The patient is an 87-year-old, known to me from multiple previous admissions, was recently seen in office, had a flu shot, given last week. The patient states she has been having a little cough for last few days but did not have fever or chills. She was okay until last night. This morning, she woke up, she was having some shortness of breath. She is unable to catch her breath more on ambulating. Denies any fever or chills. Complaining of having chest tightness. No history of nausea or vomiting. No dizziness. PAST MEDICAL HISTORY: Significant for; 1. COPD. 2. Coronary artery disease, status post multiple angioplasty. 3. Hyperlipidemia. 4. Mzr-oxcjkfy-uwjxopxnx diabetes. 5. Terminal COPD. 6. Anxiety disorder. ALLERGIES: THE PATIENT IS ALLERGIC TO OXYCODONE, SULFA, AND MOLDS. MEDICATIONS: At home, she is on diltiazem 360 daily, Spiriva 18 mcg daily, metoprolol 25 twice a day, lisinopril 20 mg twice a day, glipizide 5 mg twice a day, Plavix 75 daily, Lipitor 10 mg daily, aspirin mg daily, Lasix 40 mg daily, Advair and ProAir as needed. SOCIAL HISTORY: She used to be a heavy smoker, quit in 1985. Does not drink. REVIEW OF SYSTEMS: Significant for cough, congestion, shortness of breath. PHYSICAL EXAMINATION: GENERAL: She has mild shortness of breath with audible wheezing. VITAL SIGNS: She is afebrile, pulse 68, respirations 18, blood pressure 152/67. LUNGS: Bilateral expiratory rhonchi. A few crackles at right lung base. HEART: S1 and S2 audible. ABDOMEN: Soft, nontender. No rebound. No guarding. NEUROLOGIC: The patient is awake, alert, oriented, communicative. LABORATORY DATA: WBC 7.7, hemoglobin 13, hematocrit 40, platelets 368. D-dimer 369. Chemistry: Sodium 143, potassium 4.1, chloride 107, CO2 of 25, BUN 21, creatinine 0.7, blood sugar of 164. Calcium 10.6. Urinalysis shows positive nitrites and leukocyte. CT scan of the chest is pending. ASSESSMENT: 1. Chronic obstructive pulmonary disease exacerbation. 2. Pneumonia. 3. Uvr-khtgjkd-rswqopgdb diabetes. 4. Hypertension. 5. Hyperlipidemia. 6. Coronary artery disease, status post angioplasty. PLAN: The patient will be admitted on telemetry. Start her on IV steroid, nebulizer treatment. Start her on antibiotic. Blood culture and urine cultures were done. We will follow up cardiac enzymes. Follow up CBC and CMP in a.m. We will monitor blood sugar with coverage. We will follow up in a.m. Louisa Aburto MD
--- NOTE | 2018-02-26 09:49 | CT ---
Date of service: 02/25/2018 PROCEDURE: CT Chest with contrast (Pulmonary Angiogram) HISTORY: sob elevated dimer COMPARISON: None available. TECHNIQUE: Axial computed tomography images were obtained of the chest in the pulmonary arterial phase of enhancement. Coronal and sagittal reformatted images were created and reviewed. Intravenous contrast dose: 100 cc of Omni 350 Radiation dose: Total exam DLP = 479.69 mGy-cm. This CT exam was performed using one or more of the following dose reduction techniques: Automated exposure control, adjustment of the mA and/or kV according to patient size, and/or use of iterative reconstruction technique. FINDINGS: PULMONARY ARTERIES: Unremarkable. No pulmonary embolism. AORTA: No acute findings. No thoracic aortic aneurysm. LUNGS: Focal infiltrates are seen in the superior segments of both lower lobes. These findings could also be seen on the study from 04/09/2015 and are therefore consistent with scarring. There is a 10 mm lung nodule adjacent to the left hilum which was not present on the previous study. PLEURAL SPACES: Unremarkable. No effusion or pneumothorax. HEART: Unremarkable. No cardiomegaly. No significant pericardial effusion. LYMPH NODES: No lymphadenopathy. BONES, CHEST WALL: Unremarkable. No fracture or destructive lesion OTHER FINDINGS: The [place] rad preliminary report did not mention the lung nodule adjacent to the left hilum. IMPRESSION: No evidence of pulmonary embolus. Focal infiltrates are seen in the superior segments of both lower lobes. These findings could also be seen on the study from 04/09/2015 and are therefore consistent with scarring. There is a 10 mm lung nodule adjacent to the left hilum which was not present on the previous study.
--- NOTE | 2018-02-26 10:17 | CARD ---
APPROVED REPORT Date of service: 02/25/2018 EKG Measurement Heart [id number] <Conclusion> Sinus rhythm with 1st degree AV block Otherwise normal ECG
[2018-02-26] MEDS: Magnesium Oxide 400 mg Tab UD PO SCH ×2 (10:27→17:40)
[2018-02-26] MEDS: GlipiZIDE 5 mg SR Tab PO SCH ×2 (10:27→17:40)
[2018-02-26] MEDS: diltiaZEM 180 mg/24 Hours CD Cap PO SCH (10:27)
[2018-02-26] MEDS: Tiotropium 18 mcg Cap For Inhalation IH SCH (10:27)
[2018-02-26] MEDS: cefTRIAXone 1 gm 1 GM/100 ML BAG IVPB SCH (10:33)
[2018-02-26] MEDS: Azithromycin 500MG/NS 250ml 500 MG/250 ML BAG IVPB SCH (11:47)
--- NOTE | 2018-02-26 16:15 | PN ---
DATE: 02/26/2018 SUBJECTIVE: The patient is an 87-year-old, seen and examined. She states she feels a lot better. PHYSICAL EXAMINATION: VITAL SIGNS: She is afebrile, pulse 76, respirations 18, blood pressure 135/55. LUNGS: Bilateral fair airflow. No rhonchi or crackle. HEART: S1 and S2 audible. ABDOMEN: Soft, nontender. No rebound. No guarding. NEUROLOGIC: She is awake, alert, oriented, communicative. LABORATORY DATA: WBC 14.6, hemoglobin 12.7, hematocrit 39.3, platelets 357. Chemistry: Sodium 141, potassium 4.8, chloride 106, CO2 of 24, BUN 36, creatinine 0.7, blood sugar of 170. Urine shows positive nitrite and trace leukocytes. CT scan of the chest shows no pulmonary embolism; however, there is a focal infiltrate in both lower lobes and this finding could also be seen on the study from 04/09/2018. There is a lung nodule adjacent to the left hilum, which was not present on the previous study. PLAN: We will continue the patient on current antibiotics. Continue on IV steroid. Continue nebulizer treatment. Follow up cultures. We will follow up patient in a.m. Louisa Aburto MD
[2018-02-27] MEDS: Albuterol-Ipratrop 3 mg / 0.5 (3 ml) UD IH SCH ×4 (01:40→13:38)
[2018-02-27 05:15] VITALS: RESP 19
[2018-02-27 06:03] VITALS: O2SAT 97
[2018-02-27] MEDS: Pantoprazole 40 mg EC Tab PO SCH (06:13)
[2018-02-27] MEDS: Insulin Reg-HIGH-Coverage SC SCH ×2 (09:04→14:08)
[2018-02-27] MEDS: GlipiZIDE 5 mg SR Tab PO SCH (09:48)
[2018-02-27] MEDS: diltiaZEM 180 mg/24 Hours CD Cap PO SCH (09:48)
[2018-02-27] MEDS: MethylPREDNISolone 40 mg Vial IV SCH (09:55)
[2018-02-27] MEDS: cefTRIAXone 1 gm 1 GM/100 ML BAG IVPB SCH (10:02)
[2018-02-27 10:07] VITALS: BP 127/51
[2018-02-27] MEDS: Magnesium Oxide 400 mg Tab UD PO SCH (10:08)
[2018-02-27] MEDS: Azithromycin 500MG/NS 250ml 500 MG/250 ML BAG IVPB SCH (11:33)
[2018-02-27] MEDS: Tiotropium 18 mcg Cap For Inhalation IH SCH (11:33)
[2018-02-27 13:31] VITALS: TEMP 98
[2018-02-27 14:54] VITALS: PULSE 57
--- NOTE | 2018-02-28 00:08 | DS ---
HISTORY OF PRESENT ILLNESS: The patient is 87 years old, seen and examined. She states she feels much better. No nausea. No vomiting. No diarrhea. No chest pain. No shortness of breath. No fever. PHYSICAL EXAMINATION VITAL SIGNS: She is afebrile, pulse 67, respirations 19, and blood pressure 127/51. LUNGS: Bilateral fair airflow. No rhonchi or crackle. HEART: S1, S2 audible. ABDOMEN: Soft and nontender. No rebound. No guarding. NEUROLOGIC: She is awake, alert, oriented, communicative, and ambulatory. LABORATORY DATA: Blood sugar is 192. ASSESSMENT: 1. Chronic obstructive pulmonary disease exacerbation. 2. Hypertension. 3. Coronary artery disease, status post angioplasty. 4. Lower lobe atelectasis versus infiltrate. PLAN: The patient is clinically stable. We will discharge today on prednisone 20 mg twice a day and Levaquin 500 daily for 5 days and follow up in office in . Louisa Aburto MD
== END 2018-02-27 15:26 | disposition home or self-care (01) | DRG 192 ==
LOC: ED 18:01 → ERH 21:00 → 2RSO 23:09
PROVIDERS: ADMIT Internal Medicine; ATTEND Internal Medicine
PROC: 3E0F7GC Introduction of Other Therapeutic Substance into Respiratory Tract, Via Natural or Artificial Opening (ICD-10-PCS; principal; 2018-02-26)
DX: J44.1 Chronic obstructive pulmonary disease with (acute) exacerbation (principal); I10 Essential (primary) hypertension; I25.10 Atherosclerotic heart disease of native coronary artery without angina pectoris; E11.9 Type 2 diabetes mellitus without complications; E78.5 Hyperlipidemia, unspecified; K21.9 Gastro-esophageal reflux disease without esophagitis; Z79.02 Long term (current) use of antithrombotics/antiplatelets; Z79.84 Long term (current) use of oral hypoglycemic drugs; Z79.899 Other long term (current) drug therapy; Z87.891 Personal history of nicotine dependence; Z90.49 Acquired absence of other specified parts of digestive tract; Z90.710 Acquired absence of both cervix and uterus; Z95.5 Presence of coronary angioplasty implant and graft